=== PATIENT | female | born 1950 | race Caucasian/White ===

== ENCOUNTER 2021-12-17 20:06 | Inpatient (IN) | payer OTHER, MEDICAID ==
[~2021-12-17] VITALS: Ht 160 cm; Wt 52.0 kg
[2021-12-17] MEDS ORDERED: NITROGLYCERIN 0.4 MG SL TAB SL ONE (20:15)
[2021-12-17] MEDS ORDERED: SODIUM CHLORIDE 0.9% 1,000 ML IV ONE (20:15)
[2021-12-17] MEDS ORDERED: ENOXAPARIN SOD 60 MG/0.6 ML SYRINGE SC ONE (21:30)
[2021-12-17 22:11] LABS: Basophils # (auto) 0 10 ^3/uL (0-0.2); Basophils % (auto) 0.4 % (0.0-2.0); Eosinophils # (auto) 0.1 10 ^3/uL (0-0.8); Hematocrit 34.2 % (36.0-46.0); Hemoglobin 11.4 g/dL (12.2-16.2); Lymphocytes # (auto) 2.4 10 ^3/uL (0.4-5.4); Lymphocytes % (auto) 36.6 % (10.0-50.0); Mean Corpuscular Hemoglobin 29.6 pg (28.0-32.0); Mean Corpuscular Hgb Conc. 33.3 g/dL (32.0-36.0); Mean Corpuscular Volume 88.7 fL (80.0-100.0); Monocytes # (auto) 0.5 10 ^3/uL (0-1.3); Monocytes % (auto) 7.1 % (0.0-12.0); Neutrophils # (auto) 3.5 10 ^3/uL (1.6-8.6); Neutrophils % (auto) 53.9 % (37.0-80.0); Nucleated Red Blood Cells % 0.1 %; Red Blood Cells 3.86 10^6/uL (4.0-5.20); Red Cell Distribution Width 15.3 % (11.8-14.3); White Blood Cell 6.6 10^3/uL (4.4-10.8)
[2021-12-17 22:26] LABS: INR 1.08 (0.9-1.15)
[2021-12-17 22:31] LABS: Albumin 2.3 g/dL (3.4-5.0); BUN/Creatinine Ratio 9.4; Calcium 7.5 mg/dL (8.5-10.1)
[2021-12-17 22:34] LABS: Bilirubin, Total 0.6 mg/dL (0.2-1.0)
[2021-12-17 22:51] LABS: Potassium 2.7 mmol/L (3.5-5.1)
[2021-12-18] MEDS: POTASSIUM CHL 20MEQ/100ML 100 ML IV SCH ×4 (00:21→12:59)
[2021-12-18 01:55] LABS: Urine Bacteria NONE SEEN /hpf (None Seen); Urine Blood Negative /uL (Negative); Urine Specific Gravity 1.007 (1.001-1.035); Urine WBC 7 /hpf (0 - 5)
[2021-12-18] MEDS ORDERED: LABETALOL HCL 5 MG/ML 4ML SYRINGE IV ONE (02:00)
[2021-12-18] MEDS ORDERED: NITROGLYCERIN 0.4 MG SL TAB SL ONE ×2 (05:00→09:00)
[2021-12-18 08:44] LABS: BUN/Creatinine Ratio 8.6; Calcium 7.8 mg/dL (8.5-10.1)
[2021-12-18 08:51] LABS: Potassium 2.7 mmol/L (3.5-5.1)
[2021-12-18] MEDS ORDERED: ACETAMINOPHEN 325 MG TAB PO PRN (09:00)
[2021-12-18] MEDS ORDERED: POTASSIUM EFFERVESENT TAB 25 MEQ PO ONE (09:00)
[2021-12-18] MEDS ORDERED: POTASSIUM CHL 20MEQ/100ML 100 ML IV ONE (09:00)
[2021-12-18] MEDS ORDERED: ONDANSETRON HCL 4 MG/2 ML VIAL IV PRN (09:00)
[2021-12-18] MEDS ORDERED: SODIUM CHLORIDE 0.9% 1,000 ML IV SCH (09:15)
[2021-12-18] MEDS ORDERED: metroNIDAZOLE 500MG/100ML 100 ML IV SCH (10:00)
[2021-12-18] MEDS ORDERED: SPIRONOLACTONE 25 MG TAB PO ONE (10:00)
[2021-12-18] MEDS ORDERED: LORazepam 2MG/ML-1ML VIAL IV ONE (10:30)
[2021-12-18] MEDS: MAGNESIUM SULFATE 1GM/100ML 100 ML IV SCH ×3 (12:50→16:22)
[2021-12-18 17:30] VITALS: BP 147/80
[2021-12-18] MEDS ORDERED: NITROGLYCERIN 0.4 MG SL TAB SL PRN (19:00)
[2021-12-18 19:25] LABS: Calcium 7.8 mg/dL (8.5-10.1); Potassium 3.1 mmol/L (3.5-5.1)
[2021-12-18 19:28] LABS: BUN/Creatinine Ratio 8.3
[2021-12-18] MEDS ORDERED: [UNRECOGNIZED DRUG - CODE] (21:17)
[2021-12-18] MEDS ORDERED: ATOR40TA52 PO (21:17)
[2021-12-18] MEDS ORDERED: PANT40T PO (21:17)
[2021-12-18] MEDS ORDERED: QUET200T45 PO (21:17)
[2021-12-18] MEDS ORDERED: CEPH500T PO (21:17)
[2021-12-18] MEDS ORDERED: CEPH500C PO (21:17)
[2021-12-18] MEDS ORDERED: DICL1GEL50 TOP (21:17)
[2021-12-18] MEDS ORDERED: NITR0.4S29 (21:17)
[2021-12-18] MEDS ORDERED: LAMO200T34 PO (21:17)
[2021-12-18] MEDS ORDERED: HYDR-4798 (21:17)
[2021-12-18] MEDS: VANCOMYCIN HCL 125MG/5ML ORAL SOL PO SCH (21:45)
[2021-12-18 22:00] VITALS: BP 144/70
[2021-12-19 05:00] VITALS: BP 142/78
[2021-12-19] MEDS: VANCOMYCIN HCL 125MG/5ML ORAL SOL PO SCH ×3 (06:00→17:22)
[2021-12-19] MEDS ORDERED: POTASSIUM CHL 20 Meq TABLET PO ONE (09:15)
[2021-12-19 09:35] VITALS: BP 136/67
[2021-12-19] MEDS ORDERED: POTASSIUM CHLORIDE 20 MEQ, LIDOCAINE 1% (LOCAL ANESTH.) 2 ML in SODIUM CHL 0.9% 100 ML IV ONE (09:45)
[2021-12-19 13:00] VITALS: BP 126/88
[2021-12-19] MEDS ORDERED: CLOPIDOGREL BISULFATE 75 MG TAB PO SCH (14:30)
[2021-12-19] MEDS ORDERED: ATORVASTATIN 20 MG TAB PO SCH (14:30)
[2021-12-19] MEDS ORDERED: ASPirin-EC 81 mg tab PO SCH (14:30)
[2021-12-19] MEDS ORDERED: ATOR20TA50 PO (14:52)
[2021-12-19] MEDS ORDERED: ASPI-543 PO (14:52)
[2021-12-19] MEDS ORDERED: VANC125PO PO (14:52)
[2021-12-19] MEDS ORDERED: CLOP75TA70 PO (14:52)
[2021-12-19 15:25] VITALS: BP 167/83
[2021-12-19 16:48] VITALS: BP 126/88
== END 2021-12-19 17:50 | disposition home health service (06) | DRG 281 ==
LOC: EDBD 20:06 → ER 20:09 → TELE 12-18 09:03 → TELE-EAST 12-18 17:49
PROVIDERS: ADMIT Internal Medicine; ATTEND Internal Medicine
DX: I21.4 Non-ST elevation (NSTEMI) myocardial infarction (principal); A04.72 Enterocolitis due to Clostridium difficile, not specified as recurrent; E87.6 Hypokalemia; Z20.822 Contact with and (suspected) exposure to COVID-19; E11.9 Type 2 diabetes mellitus without complications; F17.200 Nicotine dependence, unspecified, uncomplicated; F41.9 Anxiety disorder, unspecified; I25.10 Atherosclerotic heart disease of native coronary artery without angina pectoris; Z79.899 Other long term (current) drug therapy; Z98.61 Coronary angioplasty status; Z91.19 Patient's noncompliance with other medical treatment and regimen
CPT/HCPCS: 36415; 71045; 80048; 80053; 81001; 83735; 83880; 84132; 84484; 85025; 85610; 85730; 87493; 93005; 93306; 96361; 96365; 96367; 96375; 97163; 99291; G0378; J2001; J2405; J3480; J3490